=== PATIENT | female | born 1935 | race African-American/Black ===

== ENCOUNTER 2018-06-08 14:17 | Emergency (ER) | payer MEDICARE, OTHER ==
[2018-06-08 14:55] LABS: Bilirubin Small (Negative); Blood, Urine Negative (Negative); Clarity CLEAR (Clear); Glucose, Urine (Dipstick) Negative (Negative); Leukocyte Small (Negative); Nitrite Negative (Negative); Protein, Urine (Dipstick) Trace mg/dL (Neg-Trace); Specific Gravity, Urine 1.037 (1.002-1.036); Urobilinogen 0.2 mg/dL (0.2-1.0); pH, Urine 5.5 (5.0-9.0)
[2018-06-08 14:57] LABS: #Basophils 0.1 thou/uL (0.0-0.2); #Lymphocytes 2.2 thou/uL (1.20-3.40); #Monocytes 0.6 thou/uL (0.11-0.59); #Neutrophils 4.6 thou/uL (1.40-6.50); %Eosinophils 0.4 % (0.0-10.0); %Lymphocytes 29.3 % (21.0-51.0); %Monocytes 8.3 % (0.0-10.0); %Neutrophils 61.1 % (42.0-75.0); Hemoglobin 10.6 g/dL (12.0-16.0); Mean Corpuscular HGB CONC 32.7 g/dL (32.0-36.0); Mean Corpuscular Hemoglobin 30.3 pg (27.0-31.0); Mean Corpuscular Volume 92.8 fL (78.0-98.0); Platelet Count 183 thou/uL (130-400); RBC Distribution Width 12.1 % (11.5-14.5); Red Blood Cell (RBC) Count 3.48 mill/uL (4.20-5.40); White Blood Cell (WBC) Count 7.6 thou/uL (4.8-10.8)
[2018-06-08 14:58] LABS: Bacteria/HPF None Seen HPF (None Seen); Hyaline Casts/LPF 0-3 HYALINE CAST LPF (0-3 Hyaline); Pathc Cast-AUWi Flag 0.43 (0-2.49)
[2018-06-08 15:04] LABS: Crystals/HPF RARE CA OXALATE HPF (Negative); RBC/HPF None Seen HPF (0-3)
[2018-06-08] MEDS ORDERED: Adacel (T-DAP) 0.5 ML VIAL ONE (15:16)
[2018-06-08] MEDS ORDERED: Bacitracin Zinc 1 Packet ONE (15:16)
[2018-06-08 15:25] LABS: ALT (SGPT) 17 U/L (8-55); AST (SGOT) 25 U/L (5-34); Albumin 3.8 g/dL (3.4-4.8); Alkaline Phosphatase 52 U/L (40-150); Anion Gap 17 mmol/L (10-20); BUN (Urea Nitrogen) 24 mg/dL (9.8-20.1); Bilirubin, Total 0.3 mg/dL (0.2-1.2); Calc. Creatinine Clearance 0 mL/min (70-130); Calcium 9.3 mg/dL (7.8-10.44); Carbon Dioxide 21 mmol/L (23-31); Chloride 109 mmol/L (98-107); Estimated GFR-MDRD 71; Globulin 2.9 g/dL (2.4-3.5); Glucose 134 mg/dL (83-110); Potassium 3.7 mmol/L (3.5-5.1); Protein, Total 6.7 g/dL (6.0-8.3); Sodium 143 mmol/L (136-145)
--- NOTE | 2018-06-08 15:37 | RAD ---
RIGHT HAND THREE VIEW: 06/08/18 HISTORY: Injury. Laceration of the right thumb. COMPARISON: None. FINDINGS: There appears to be a soft tissue laceration on the dorsal aspect of the thumb metacarpophalangeal christiano int. Mild interphalangeal metacarpophalangeal joint space narrowing throughout the hand. Mild degener ative disease of the thumb carpometacarpal joint. Mild narrowing of the scaphotrapezium trapezoid adi nt. No radiopaque foreign object is appreciated. There is a calcified periarthritis of the thumb. There i s mild triangular fibrocartilage calcification. IMPRESSION: Mild degenerative changes. No acute displaced fracture, malalignment nor radiopaque foreign object. POS: [facility]
== END 2018-06-08 15:58 | disposition home or self-care (01) ==
LOC: ERS 14:17
DX: S61.011A Laceration without foreign body of right thumb without damage to nail, initial encounter (principal); N39.0 Urinary tract infection, site not specified; F03.90 Unspecified dementia, unspecified severity, without behavioral disturbance, psychotic disturbance, mood disturbance, and anxiety; I25.10 Atherosclerotic heart disease of native coronary artery without angina pectoris; E78.5 Hyperlipidemia, unspecified; I10 Essential (primary) hypertension; W25.XXXA Contact with sharp glass, initial encounter
CPT/HCPCS: 36415; 80053; 81003; 81015; 85025; 87086; 90471; 90715

== ENCOUNTER 2018-07-27 15:08 | Outpatient (CLI) | payer MEDICARE, OTHER ==
[~2018-07-27 15:08] MED LIST: Gadobenate Dimeglumine 529 MG/1 ML (20ML VIAL) ONE
== END 2018-07-27 15:09 | disposition home or self-care (01) ==
LOC: BICMRI 15:08
PROVIDERS: ATTEND Psychiatry & Neurology Neurology
DX: G31.1 Senile degeneration of brain, not elsewhere classified (principal)
CPT/HCPCS: 70553; 82565; A9579

== ENCOUNTER 2020-08-21 09:26 | Emergency (ER) | payer MEDICARE, OTHER ==
[2020-08-21 19:04] LABS: SARS-CoV-2 MS2 Positive; SARS-CoV-2 N Gene Negative; SARS-CoV-2 S Gene Negative; SARS-CoV-2 by NAA Not Detected (NotDetected); SARS-CoV-2 orf1ab Negative
== END 2020-08-21 10:05 | disposition home or self-care (01) ==
LOC: ERS 09:26
DX: Z20.828 Contact with and (suspected) exposure to other viral communicable diseases (principal); I10 Essential (primary) hypertension; E78.5 Hyperlipidemia, unspecified; E78.00 Pure hypercholesterolemia, unspecified
CPT/HCPCS: 99283; U0003; 87635

== ENCOUNTER 2020-11-15 04:27 | Emergency (ER) | payer MEDICARE, OTHER ==
[2020-11-15 05:14] LABS: #Basophils 0.1 thou/uL (0.0-0.2); #Eosinphils 0.1 thou/uL (0.0-0.7); #Lymphocytes 1.4 thou/uL (1.20-3.40); #Monocytes 0.5 thou/uL (0.11-0.59); #Neutrophils 3.4 thou/uL (1.40-6.50); %Basophils 1.6 % (0.0-1.0); %Lymphocytes 25.2 % (21.0-51.0); %Monocytes 9.6 % (0.0-10.0); %Neutrophils 62.6 % (42.0-75.0); Hemoglobin 12.1 g/dL (12.0-16.0); Mean Corpuscular HGB CONC 32.5 g/dL (32.0-36.0); Mean Corpuscular Hemoglobin 30.2 pg (27.0-31.0); Mean Platelet Volume 8.8 fL (7.4-10.4); Platelet Count 155 thou/uL (130-400); RBC Distribution Width 12.7 % (11.5-14.5); White Blood Cell (WBC) Count 5.4 thou/uL (4.8-10.8)
[2020-11-15 05:27] LABS: ALT (SGPT) 20 U/L (8-55); AST (SGOT) 27 U/L (5-34); Albumin 3.7 g/dL (3.4-4.8); Alkaline Phosphatase 46 U/L (40-110); Anion Gap 13 mmol/L (10-20); BUN (Urea Nitrogen) 24 mg/dL (9.8-20.1); Bilirubin, Total 0.4 mg/dL (0.2-1.2); CK (CPK) 362 U/L (29-168); Calc. Creatinine Clearance 0 mL/min (70-130); Calcium 9.2 mg/dL (7.8-10.44); Carbon Dioxide 26 mmol/L (23-31); Chloride 109 mmol/L (98-107); Glucose 117 mg/dL (83-110); Potassium 4.2 mmol/L (3.5-5.1); Protein, Total 6.7 g/dL (6.0-8.3); Sodium 144 mmol/L (136-145)
[2020-11-15 05:37] LABS: PTT 26.2 sec (22.9-36.1); Prothrombin Time 13.8 sec (12.0-14.7)
--- NOTE | 2020-11-15 07:34 | CT ---
PRELIMINARY REPORT/[facility]/EMERGENCY AFTER HOURS PROCEDURE EXAM: CT Head Without Intravenous Contrast. CLINICAL HISTORY: HAS BEEN LEANING MORE TO HER LEFT SIDE INCREASINGLY FOR A WEAK NOW. FELL TODAY AROUND 0330 FROM A STA NDING POSITION. DENIES LOC. COMPLAINING OF LEFT ELBOW PAIN. FELL ONTO TILE FLOOR. TAKES A BABY ASPIRIN A DAY. HX OF DEMENTIA TECHNIQUE: Axial computed tomography images of the head/brain without intravenous contrast. COMPARISON: None provided. FINDINGS: BRAIN: There is mild to moderate diffuse cerebral volume loss. There are mild bilateral periventricular and subcortical hypodensities, likely small vessel ischemic disease. There is no evidence of acute intracranial hemorrhage, mass-effect or midline shift. VENTRICLES: Ventricles are unremarkable. ORBITS: The orbits are unremarkable. SINUSES AND MASTOIDS: The paranasal sinuses and mastoid air cells are clear. SOFT TISSUES: No significant facial or scalp soft tissue swelling evident. No radiopaque foreign body is seen. BONES: No acute skull fracture. IMPRESSION: No acute intracranial abnormality. Cerebral volume loss and small vessel ischemic disease noted. ELECTRONICALLY SIGNED BY: Hannah Gutiérrez MD Nov 15, 2020 5:33:47 AM [employer] This report is intended for review by the ordering physician only, in accordance of law. If you recei ve this report in error, please call [facility] at [phone]. FINAL REPORT Final interpretation Head CT without contrast: 11/15/2020 COMPARISON: None HISTORY: Pain, dementia, fall, trauma. FINDINGS: I agree with the preliminary report. The study is slightly limited by motion artifact. Imag ed paranasal sinuses and mastoid air cells are well-aerated. There is diffuse cerebral volume loss. Periventricular hypodensity noted, evidence of small vessel disease. No intracranial hemorrhage, midl ine shift, or mass effect. No displaced calvarial fracture. IMPRESSION: No acute findings. Code QA Transcribed Date/Time: 11/15/2020 8:31 AM
--- NOTE | 2020-11-15 08:00 | RAD ---
2 views of right hip: 11/15/2020 COMPARISON: None HISTORY: Stroke, fall FINDINGS: Linear metallic densities overlie the inferior pubic ramus on the right. There is superior joint space narrowing with lateral acetabular osteophyte formation. No displaced fracture or evidence of dislocation. If symptoms persist and there is clinical concern for a radio-occult fractur e, cross-sectional imaging advised. IMPRESSION: No displaced fracture.
--- NOTE | 2020-11-15 08:01 | RAD ---
RADIOGRAPH CHEST 1 VIEW: DATE: 11/15/2020 HISTORY: 85-year-old female status post acute chest trauma from fall. Stroke. Concern for aspiration. FINDINGS: There is no airspace density, pulmonary edema, or pneumothorax. The lateral costophrenic angles are n ot effaced. Sternotomy wires. Multiple clips at left side of cardiac shadow. Additional surgical clips at left paramedian thoracic inlet. IMPRESSION: 1. No acute pulmonary findings. 2. 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
--- NOTE | 2020-11-15 08:43 | RAD ---
LEFT HIP 2 VIEWS: HISTORY: Fall, left hip pain. FINDINGS/IMPRESSION: Degenerative changes are present. No acute fracture or dislocation is identified. If there is high clinical suspicion for a fracture, further evaluation with CT scan or MRI should be performed. POS: [facility]
== END 2020-11-15 06:54 | disposition home or self-care (01) ==
LOC: ERS 04:27
DX: Z04.3 Encounter for examination and observation following other accident (principal); W19.XXXA Unspecified fall, initial encounter
CPT/HCPCS: 36416; 70450; 71045; 80053; 82550; 84484; 85025; 85610; 85730; 93005

== ENCOUNTER 2025-06-27 12:53 | Emergency (ER) | payer MEDICARE, OTHER ==
[2025-06-27] MEDS ORDERED: Acetaminophen 500 MG TAB ONE (13:32)
== END 2025-06-27 14:59 | disposition home or self-care (01) ==
LOC: ERS 12:53
DX: S00.83XA Contusion of other part of head, initial encounter (principal); S00.219A Abrasion of unspecified eyelid and periocular area, initial encounter; I10 Essential (primary) hypertension; W05.0XXA Fall from non-moving wheelchair, initial encounter; Z86.73 Personal history of transient ischemic attack (TIA), and cerebral infarction without residual deficits
CPT/HCPCS: 70450; 70486; 72125